=== PATIENT | female | born 1965 ===

== ENCOUNTER 2016-11-26 06:43 | Day surgery (SDC) | payer SELFPAY ==
[2016-11-10 10:23] VITALS: BMI 34.6
[2016-11-26] MEDS ORDERED: Lidocaine 4% (Laryng-O-Jet) Kit MM ONE (07:15)
[2016-11-26] MEDS ORDERED: Phenylephrine 10 mg/ml Inj ONE (07:16)
[2016-11-26] MEDS ORDERED: Rocuronium 10 mg/ml (5 ml) ONE (07:16)
[2016-11-26] MEDS ORDERED: Propofol 10 mg/ml Inj (20 ML) ONE (07:16)
[2016-11-26] MEDS ORDERED: Succinylcholine 200 mg/10 ml Inj IV ONE (07:21)
[2016-11-26] MEDS ORDERED: Dexamethasone 4 mg/1 ml ONE (07:23)
[2016-11-26] MEDS ORDERED: Lactated Ringer's 1,000 ML IV ONE ×2 (07:23→08:25)
[2016-11-26] MEDS ORDERED: Bupivacaine 0.5% Inj(30mL) ONE (07:30)
[2016-11-26] MEDS ORDERED: Neostigmine Methylsulfate 2 MG/2 ML ML IV ONE (08:18)
[2016-11-26] MEDS ORDERED: Oxycodone/Acetaminophen 5/325 mg Tab PO PRN (08:55)
[2016-11-26] MEDS ORDERED: HYDROmorphone 0.5 mg/0.5 ml ISec IVP PRN (08:56)
[2016-11-26] MEDS ORDERED: Lactated Ringer's 1,000 ML IV SCH (08:56)
--- NOTE | 2016-11-26 08:57 | PCM.SURG1 ---
Surgeon's Initial Post Op Note - Surgeon's Notes Surgeon: Dr. Kostas Corral Fuller Brush Worker: Dr. Meredith Yang Type of Anesthesia: General Endo Anesthesia Administered By: Emilia Pre-Operative Diagnosis: Cholelithiasis Operative Findings: same Post-Operative Diagnosis: same Operation Performed: Laparoscopic Cholecystectomy Specimen/Specimens Removed: gallbladder Estimated Blood Loss: EBL {In ML}: 5 Blood Products Given: N/A Drains Used: No Drains Post-Op Condition: Good Date of Surgery/Procedure: 11/26/16 Time of Surgery/Procedure: 08:57
--- NOTE | 2016-11-26 09:00 | CP.SDSHP ---
Same Day Surgery H & P - Allergies Allergies: Allergies No Known Allergies Allergy (Verified 11/06/14 10:07) - Physical Exam Vital Signs: Vital Signs 11/26/16 11/26/16 07:15 07:18 Temperature 98.5 F Pulse Rate 79 79 Respiratory 20 Rate Blood Pressure 144/85 O2 Sat by Pulse 98 Oximetry Short Stay Discharge - Short Stay Discharge Admitting Diagnosis/Reason for Visit: K80.80 Disposition: HOME/ ROUTINE Medications: oxyCODONE/Acetaminophen [Percocet 5/325 mg Tab] 2 tab PO Q4 PRN #15 tab PRN Reason: Pain, Moderate (4-7) Referrals: Marck Vance MD [Primary Care Provider] - El Jaime MD [Staff Provider] - Follow-up: 2 weeks. Additional Instructions (Diet, Activity): You may remove dressings tomorrow and you may shower. Resume regular diet and light activities. Take percocet as prescribed for pain, or Motrin OTC when pain is mild. Avoid any heavy lifting >20lbs for 3 weeks. Make an appt to see Dr. Jaime in office in 2 weeks.
[2016-11-26 10:45] VITALS: RESP 18; O2SAT 96
[2016-11-26 12:36] VITALS: BP 126/69; PULSE 88; TEMP 98.3
--- NOTE | 2016-12-17 18:26 | OP ---
PROCEDURE DATE: 11/26/2016. OPERATION PERFORMED: Laparoscopic cholecystectomy. SURGEON: Dr. El Jaime. SHOT HOLE DRILLER: Dr. Kenyon. SECOND SHOT HOLE DRILLER: Dr. Velasquez. PREOPERATIVE DIAGNOSIS: Cholelithiasis. POSTOPERATIVE DIAGNOSIS: Cholelithiasis. PREOPERATIVE FINDINGS: Cystic duct, cystic artery identified, critical view obtained. ESTIMATED BLOOD LOSS: Minimal. OPERATIVE PROCEEDINGS: As follows: The patient was taken to the operating room and placed supine on the operating room table. After induction of general anesthesia, the abdomen was prepped and draped in a standard surgical fashion. A Veress needle was inserted into the abdomen through the umbilicus. The abdomen was insufflated. Once sufficient CO2 was entered into the abdomen, a 10-mm trocar was placed through the umbilicus and a diagnostic laparoscopy was performed. The patient was then placed into the reversed Trendelenburg left side down position and the subxiphoid and two right-sided trocars were placed under direct vision. The gallbladder was grasped from the fundus and pulled upwards and the neck of the gallbladder was pulled outwards exposing the triangle of Calot. Blunt dissection with a [place] dissector was used to isolate the contents of the triangle of Calot. Once the contents of the triangle were isolated, the cystic duct was identified and seen to be entering the gallbladder. The cystic duct was then clipped and divided. The cystic artery was then encircled clipped and divided in a similar fashion. The gallbladder was then taken off the gallbladder fossa using the electrocautery. Once the gallbladder was off the gallbladder fossa, it was placed into an EndoCatch bag. The right upper quadrant was copiously irrigated. The gallbladder fossa was checked for bleeding. There was no evidence of bleeding. The irrigant was removed. The gallbladder was then removed via the umbilical trocar site. The trocars were then removed under direct vision. The umbilical trocar site was closed using #0 Vicryl. The skin incisions were closed using #4-0 Monocryl and the patient had 10 cc of 1% Marcaine infiltrated into all the wounds. The patient tolerated the procedure well. There were no complications. The sponge, instrument, and needle counts were correct at the end of the case. El Jaime MD
== END 2016-11-26 13:02 | disposition home or self-care (01) ==
LOC: H.OPSURG 06:43
PROVIDERS: ATTEND Surgery
DX: K80.80 Other cholelithiasis without obstruction (principal); E78.5 Hyperlipidemia, unspecified; K21.9 Gastro-esophageal reflux disease without esophagitis; M19.90 Unspecified osteoarthritis, unspecified site; E78.00 Pure hypercholesterolemia, unspecified; R42 Dizziness and giddiness
CPT/HCPCS: 47562; 88304; J0330; J0690; J1100; J1170; J1885; J2001; J2370; J2405; J2704; J2710; J2765; J3010; J7030; J7120